=== PATIENT | female | born 1970 | race Caucasian/White ===

== ENCOUNTER 2018-01-21 15:10 | Inpatient (IN) | payer BC ==
[~2018-01-21] VITALS: Ht 165.1 cm; Wt 102.8 kg
[2018-01-21] MEDS ORDERED: PLEASE ENTER ALLERGIES MC SCH (15:30)
[2018-01-21] MEDS ORDERED: ONDANSETRON 2MG/ML, 2ML IVPush ONE (15:30)
[2018-01-21] MEDS ORDERED: SODIUM CHLORIDE FLUSH 10ML SYR IVF ONE (15:30)
[2018-01-21 15:39] LABS: BASOPHILS # (AUTO) 0.01 x10^3/uL (0-0.1); BASOPHILS % (AUTO) 0 % (0-1); EOSINOPHILS # (AUTO) 0.01 x10^3/uL (0-0.4); EOSINOPHILS % (AUTO) 0 % (1-7); LYMPHOCYTES # (AUTO) 1.25 x10^3/uL (1-3.4); LYMPHOCYTES % (AUTO) 7 % (22-44); MD NO; MEAN CORPUSCULAR HEMOGLOBIN 30.6 pg (27.0-34.8); MEAN CORPUSCULAR HGB CONC 34.5 g/dL (32.4-35.8); MEAN CORPUSCULAR VOLUME 88.6 fL (80-100); MEAN PLATELET VOLUME 8.4 fL (7.4-10.4); MONOCYTES # (AUTO) 0.73 x10^3/uL (0.2-0.8); MONOCYTES % (AUTO) 4 % (2-9); NEUTROPHILS # (AUTO) 15.64 x10^3/uL (1.8-6.8); NEUTROPHILS % (AUTO) 89 % (42-75); PLATELET COUNT 334 x10^3/uL (130-400); RED BLOOD COUNT 4.92 x10^6/uL (3.82-5.3); RED CELL DISTRIBUTION WIDTH 13.3 % (9.6-15.2)
[2018-01-21 15:48] LABS: ALANINE AMINOTRANSFERASE 25 U/L (12-78); ALBUMIN 4.2 g/dL (3.4-5.0); ANION GAP 9 mmol/L (5-15); CALCIUM 9.6 mg/dL (8.5-10.1); CHLORIDE 107 mmol/L (98-107); CREATININE 0.81 mg/dL (0.55-1.02)
[2018-01-21 15:51] LABS: ALKALINE PHOSPHATASE 71 U/L (45-117); BILIRUBIN,TOTAL 0.9 mg/dL (0.2-1.0); TOTAL PROTEIN 7.7 g/dL (6.4-8.2)
[2018-01-21] MEDS ORDERED: MORPHINE SULFATE 4 MG/ML, 1ML ONE ×2 (16:04→17:23)
[2018-01-21] MEDS ORDERED: ONDANSETRON 2MG/ML, 2ML ONE (16:04)
[2018-01-21] MEDS: MORPHINE SULFATE 4 MG/ML, 1ML IVPush PRN ×2 (16:07→17:27)
[2018-01-21] MEDS ORDERED: FLUO10CA13 PO (16:16)
[2018-01-21] MEDS ORDERED: HYDR-3240 PO (16:18)
[2018-01-21] MEDS ORDERED: ALPR0.25 PO (16:18)
[2018-01-21] MEDS ORDERED: OMNIPAQUE 350 MG/ML, 100ML BOTTLE ONE (16:51)
[2018-01-21] MEDS ORDERED: CIPROFLOXACIN/PMX 400MG/200ML 200 ML IV ONE (17:30)
[2018-01-21] MEDS ORDERED: METRONIDAZOLE PMX 500MG/100ML 100 ML IVPB ONE (17:30)
[2018-01-21] MEDS ORDERED: DOCUSATE 100 MG CAPSULE PO PRN (18:00)
[2018-01-21] MEDS ORDERED: BISACODYL 10 MG SUPP PR PRN (18:00)
[2018-01-21] MEDS ORDERED: ACETAMINOPHEN 325 MG TABLET PO PRN (18:00)
[2018-01-21] MEDS ORDERED: ONDANSETRON 2MG/ML, 2ML IVPush PRN (18:00)
[2018-01-21] MEDS ORDERED: ENALAPRILAT 1.25 MG/ML, 2ML IVPush PRN (18:00)
[2018-01-21] MEDS ORDERED: ONDANSETRON ODT 4 MG PO PRN (18:00)
[2018-01-21] MEDS ORDERED: HYDROcodone/APAP 5/325 TABLET PO PRN (18:00)
[2018-01-21] MEDS ORDERED: POLYETHYLENE GLYCOL 17 GM PACKET PO PRN (18:00)
[2018-01-21] MEDS ORDERED: LABETALOL 5MG/ML, 20ML IVPush PRN (18:00)
[2018-01-21 18:09] LABS: MICROSCOPIC AUTO
[2018-01-21 18:15] LABS: CULTURE INDICATED? NO
[2018-01-21 18:35] VITALS: BP 161/102
[2018-01-21] MEDS: morphine SULFATE 10 MG/ML, 1ML IVPush PRN (18:39)
[2018-01-21 20:37] VITALS: BP 105/70
[2018-01-21] MEDS: LACTATED RINGERS 1,000 ML IV SCH (21:25)
[2018-01-21] MEDS: PIPERACILLIN/TAZO/PMX 3.375GM 50 ML IV SCH (22:04)
[2018-01-22] MEDS: morphine SULFATE 10 MG/ML, 1ML IVPush PRN ×3 (00:18→09:03)
[2018-01-22 03:40] VITALS: BP 109/75
[2018-01-22] MEDS: LACTATED RINGERS 1,000 ML IV SCH ×3 (04:00→17:20)
[2018-01-22] MEDS: PIPERACILLIN/TAZO/PMX 3.375GM 50 ML IV SCH ×4 (04:53→22:20)
[2018-01-22 05:28] LABS: MEAN CORPUSCULAR HEMOGLOBIN 30.3 pg (27.0-34.8); MEAN CORPUSCULAR HGB CONC 34.1 g/dL (32.4-35.8); MEAN PLATELET VOLUME 8.8 fL (7.4-10.4); PLATELET COUNT 297 x10^3/uL (130-400); RED BLOOD COUNT 4.61 x10^6/uL (3.82-5.3); RED CELL DISTRIBUTION WIDTH 13.9 % (9.6-15.2)
[2018-01-22 05:41] LABS: ALBUMIN 3.7 g/dL (3.4-5.0); ANION GAP 8 mmol/L (5-15); CALCIUM 8.9 mg/dL (8.5-10.1); CHLORIDE 103 mmol/L (98-107)
[2018-01-22 05:46] LABS: ALANINE AMINOTRANSFERASE 22 U/L (12-78); ALKALINE PHOSPHATASE 68 U/L (45-117); BILIRUBIN,TOTAL 1.4 mg/dL (0.2-1.0); CREATININE 0.91 mg/dL (0.55-1.02); TOTAL PROTEIN 7.4 g/dL (6.4-8.2)
[2018-01-22 06:01] LABS: BASOPHILS # (AUTO) 0.02 x10^3/uL (0-0.1); BASOPHILS % (AUTO) 0 % (0-1); EOSINOPHILS % (AUTO) 0 % (1-7); LYMPHOCYTES # (AUTO) 1.34 x10^3/uL (1-3.4); LYMPHOCYTES % (AUTO) 7 % (22-44); MD SCAN; MONOCYTES # (AUTO) 1.07 x10^3/uL (0.2-0.8); MONOCYTES % (AUTO) 5 % (2-9); NEUTROPHILS # (AUTO) 17.83 x10^3/uL (1.8-6.8); NEUTROPHILS % (AUTO) 88 % (42-75)
[2018-01-22 08:07] VITALS: BP 107/73
[2018-01-22] MEDS: FLUOXETINE HCL 20 MG CAPSULE PO SCH (09:03)
[2018-01-22] MEDS ORDERED: PROCHLORPERAZINE 5 MG/ML, 2ML IVPush ONE (10:00)
[2018-01-22] MEDS ORDERED: DIPHENHYDRAMINE 50 MG/ML, 1ML IVPush ONE (10:00)
[2018-01-22 12:35] VITALS: BP 117/82
[2018-01-22] MEDS: HYDROmorphone 2 MG/ML, 1ML IVPush PRN ×3 (12:59→22:20)
[2018-01-22 20:43] VITALS: BP 132/72
[2018-01-23 02:10] VITALS: BP 137/88
[2018-01-23] MEDS: LACTATED RINGERS 1,000 ML IV SCH ×3 (02:35→20:29)
[2018-01-23] MEDS: HYDROmorphone 2 MG/ML, 1ML IVPush PRN ×5 (02:35→20:29)
[2018-01-23] MEDS: PIPERACILLIN/TAZO/PMX 3.375GM 50 ML IV SCH ×4 (04:04→22:01)
[2018-01-23 05:35] LABS: MEAN CORPUSCULAR HEMOGLOBIN 30.1 pg (27.0-34.8); MEAN CORPUSCULAR HGB CONC 33.8 g/dL (32.4-35.8); MEAN PLATELET VOLUME 8.6 fL (7.4-10.4); PLATELET COUNT 268 x10^3/uL (130-400); RED BLOOD COUNT 4.34 x10^6/uL (3.82-5.3); RED CELL DISTRIBUTION WIDTH 14.2 % (9.6-15.2)
[2018-01-23 05:48] LABS: CHLORIDE 103 mmol/L (98-107)
[2018-01-23 05:54] LABS: ALANINE AMINOTRANSFERASE 16 U/L (12-78); ALBUMIN 2.9 g/dL (3.4-5.0); ALKALINE PHOSPHATASE 68 U/L (45-117); ANION GAP 10 mmol/L (5-15); BILIRUBIN,TOTAL 1.6 mg/dL (0.2-1.0); CALCIUM 8.9 mg/dL (8.5-10.1); CREATININE 0.81 mg/dL (0.55-1.02); TOTAL PROTEIN 6.9 g/dL (6.4-8.2)
[2018-01-23 05:59] LABS: MD YES
[2018-01-23 06:04] LABS: BAND#(MANUAL) 3.06 x10^3/uL; BANDS%(MANUAL) 16 % (0-7); LYMPH#(MANUAL) 0.96 x10^3/uL (1-3.4); LYMPHS% (MANUAL) 5 % (22-44); METAMYELOCYTES# (MANUAL) 0.38 x10^3/uL (0-0); METAMYELOCYTES% (MANUAL) 2 % (0-1); MONOS#(MANUAL) 0.76 x10^3/uL (0.3-2.7); MONOS% (MANUAL) 4 % (2-9); SEG#(MANUAL) 13.94 x10^3/uL (1.8-6.8); SEGS% (MANUAL) 73 % (42-75)
[2018-01-23 06:06] LABS: <PLATELET ESTIMATE> ADEQUATE; <PLT MORPHOLOGY> NORMAL PLT MORPH; <RBC MORPHOLOGY> NORMAL
[2018-01-23] MEDS: FLUOXETINE HCL 20 MG CAPSULE PO SCH (07:50)
[2018-01-23 08:59] VITALS: BP 143/96
[2018-01-23] MEDS: PROCHLORPERAZINE 5 MG/ML, 2ML IVPush PRN (10:50)
[2018-01-23] MEDS: DIPHENHYDRAMINE 50 MG/ML, 1ML IVPush PRN ×2 (10:50→20:01)
[2018-01-23 12:41] LABS: HEMOGLOBIN A1C 5.4 % (4.2-6.3)
[2018-01-23 13:19] LABS: MICROSCOPIC INDICATED
[2018-01-23 13:36] LABS: CULTURE INDICATED? NO
[2018-01-23 16:44] VITALS: BP 132/90
[2018-01-23 20:14] VITALS: BP 138/92
[2018-01-24] MEDS: HYDROmorphone 2 MG/ML, 1ML IVPush PRN ×5 (00:29→16:45)
[2018-01-24] MEDS: DIPHENHYDRAMINE 50 MG/ML, 1ML IVPush PRN ×2 (02:03→08:33)
[2018-01-24 02:05] VITALS: BP 156/95
[2018-01-24] MEDS: LACTATED RINGERS 1,000 ML IV SCH ×3 (02:05→15:30)
[2018-01-24] MEDS: PIPERACILLIN/TAZO/PMX 3.375GM 50 ML IV SCH ×4 (04:18→22:24)
[2018-01-24 05:44] LABS: MEAN CORPUSCULAR HEMOGLOBIN 30.4 pg (27.0-34.8); MEAN CORPUSCULAR HGB CONC 33.2 g/dL (32.4-35.8); MEAN CORPUSCULAR VOLUME 91.4 fL (80-100); PLATELET COUNT 284 x10^3/uL (130-400); RED BLOOD COUNT 4.06 x10^6/uL (3.82-5.3); RED CELL DISTRIBUTION WIDTH 14.4 % (9.6-15.2)
[2018-01-24 05:56] LABS: CHLORIDE 103 mmol/L (98-107)
[2018-01-24 06:04] LABS: MD YES
[2018-01-24 06:05] LABS: ALANINE AMINOTRANSFERASE 13 U/L (12-78); ALBUMIN 2.3 g/dL (3.4-5.0); ALKALINE PHOSPHATASE 66 U/L (45-117); ANION GAP 7 mmol/L (5-15); BILIRUBIN,TOTAL 1.4 mg/dL (0.2-1.0); CALCIUM 8.9 mg/dL (8.5-10.1); TOTAL PROTEIN 6.4 g/dL (6.4-8.2)
[2018-01-24 06:06] LABS: <PLATELET ESTIMATE> ADEQUATE; <PLT MORPHOLOGY> NORMAL PLT MORPH; <RBC MORPHOLOGY> NORMAL; BAND#(MANUAL) 1.79 x10^3/uL; BANDS%(MANUAL) 12 % (0-7); LYMPH#(MANUAL) 1.49 x10^3/uL (1-3.4); LYMPHS% (MANUAL) 10 % (22-44); METAMYELOCYTES# (MANUAL) 0.15 x10^3/uL (0-0); METAMYELOCYTES% (MANUAL) 1 % (0-1); MONOS% (MANUAL) 2 % (2-9); SEG#(MANUAL) 11.18 x10^3/uL (1.8-6.8); SEGS% (MANUAL) 75 % (42-75); TOXIC GRAN 1+
[2018-01-24 07:15] VITALS: BP 140/99
[2018-01-24] MEDS: PROCHLORPERAZINE 5 MG/ML, 2ML IVPush PRN (08:33)
[2018-01-24] MEDS: FLUOXETINE HCL 20 MG CAPSULE PO SCH (09:00)
[2018-01-24] MEDS ORDERED: LABETALOL 5MG/ML, 20ML IV PRN (14:30)
[2018-01-24] MEDS ORDERED: MEPERIDINE/PF 25MG/0.5ML IVPush PRN (14:30)
[2018-01-24] MEDS ORDERED: hydrALAzine 20 MG/ML, 1ML IV PRN (14:30)
[2018-01-24] MEDS ORDERED: OXYcodone 5 MG/5 ML ORAL.SOL UDC PO PRN (14:30)
[2018-01-24] MEDS ORDERED: PROMETHAZINE 25 MG/ML, 1ML IV PRN (14:30)
[2018-01-24] MEDS ORDERED: ACETAMINOPHEN 325 MG TABLET PO PRN ×2 (14:30→23:30)
[2018-01-24] MEDS ORDERED: ONDANSETRON 2MG/ML, 2ML IV PRN ×2 (14:30→23:30)
[2018-01-24 15:43] VITALS: BP 154/113
[2018-01-24 16:32] LABS: HCG UR SG 1.034 (1.003-1.030)
[2018-01-24] MEDS ORDERED: FENTANYL PF 250 MCG/5ML ONE (16:40)
[2018-01-24] MEDS ORDERED: EPINEPHRINE 1 MG/ML, 1ML ONE (17:02)
[2018-01-24] MEDS ORDERED: BUPIVACAINE/PF 0.5% ONE (17:02)
[2018-01-24] MEDS ORDERED: PIPERACILLIN/TAZO/PMX 3.375GM 50 ML ONE (17:39)
[2018-01-24] MEDS ORDERED: SUCCINYLCHOLINE 20 MG/ML, 10ML ONE (17:58)
[2018-01-24] MEDS ORDERED: PROPOFOL 10 MG/ML, 20ML ONE (17:58)
[2018-01-24] MEDS ORDERED: ROCURONIUM 10MG/ML,5ML ONE (17:58)
[2018-01-24] MEDS ORDERED: KETAMINE 10 MG/ML, 20ML ONE (18:15)
[2018-01-24] MEDS ORDERED: ONDANSETRON 2MG/ML, 2ML ONE ×2 (18:50→19:35)
[2018-01-24] MEDS ORDERED: METOCLOPRAMIDE 5 MG/ML, 2ML ONE (18:50)
[2018-01-24] MEDS ORDERED: NEOSTIGMINE 1 MG/ML, 10ML ONE (19:18)
[2018-01-24] MEDS ORDERED: GLYCOPYRROLATE 0.4 MG/2 ML, 2ML ONE (19:18)
[2018-01-24] MEDS ORDERED: PROMETHAZINE 25 MG/ML, 1ML ONE (19:35)
[2018-01-24] MEDS ORDERED: HYDROmorphone 2 MG/ML, 1ML ONE (19:36)
[2018-01-24] MEDS ORDERED: FENTANYL PF 100 MCG/2ML ONE ×2 (19:36→20:18)
[2018-01-24] MEDS: HYDROmorphone 1 MG/ML, 1ML IV PRN ×4 (19:39→20:15)
[2018-01-24] MEDS: FENTANYL PF 100 MCG/2ML IV PRN ×3 (19:44→20:29)
[2018-01-24] MEDS ORDERED: ACETAMINOPHEN 650 MG/20.3 ML UDC ONE (19:58)
[2018-01-24] MEDS ORDERED: OXYcodone 5 MG/5 ML ORAL.SOL UDC ONE (19:59)
[2018-01-24] MEDS ORDERED: HYDROmorphone PCA 30 MG/30 ML IV PRN (20:00)
[2018-01-24] MEDS ORDERED: MEPERIDINE/PF 25MG/0.5ML ONE (20:18)
[2018-01-24] MEDS ORDERED: LORazepam 2 MG/ML, 1ML IV PRN (23:30)
[2018-01-24] MEDS ORDERED: ACETAMINOPHEN 650 MG SUPP PR PRN (23:30)
[2018-01-24] MEDS ORDERED: DIPHENHYDRAMINE 25 MG CAPSULE PO PRN (23:30)
[2018-01-24] MEDS ORDERED: HYDROmorphone 2 MG/ML, 1ML IVPush PRN (23:30)
[2018-01-24] MEDS ORDERED: DO NOT STOP ANTIBIOTICS AFTER 24HRS MC SCH (23:30)
[2018-01-24 23:55] VITALS: BP 108/84
[2018-01-25] MEDS: LACTATED RINGERS 1,000 ML IV SCH ×2 (01:21→07:59)
[2018-01-25 02:58] VITALS: BP 136/90
[2018-01-25] MEDS: PIPERACILLIN/TAZO/PMX 3.375GM 50 ML IV SCH ×4 (04:26→21:50)
[2018-01-25] MEDS: INSULIN REGULAR 100 UNITS/ML, 3ML VIAL SQ-INSULIN SCH ×2 (06:04→12:00)
[2018-01-25 06:20] LABS: MEAN CORPUSCULAR HEMOGLOBIN 30.5 pg (27.0-34.8); MEAN CORPUSCULAR HGB CONC 33.8 g/dL (32.4-35.8); MEAN CORPUSCULAR VOLUME 90.2 fL (80-100); PLATELET COUNT 338 x10^3/uL (130-400); RED BLOOD COUNT 3.82 x10^6/uL (3.82-5.3); RED CELL DISTRIBUTION WIDTH 13.9 % (9.6-15.2)
[2018-01-25 06:30] LABS: ALBUMIN 1.5 g/dL (3.4-5.0); ANION GAP 6 mmol/L (5-15); CALCIUM 7.9 mg/dL (8.5-10.1); CHLORIDE 105 mmol/L (98-107); CREATININE 0.72 mg/dL (0.55-1.02)
[2018-01-25 06:36] VITALS: BP 139/90
[2018-01-25 06:43] LABS: MD YES
[2018-01-25 06:46] LABS: <PLATELET ESTIMATE> ADEQUATE; <PLT MORPHOLOGY> NORMAL PLT MORPH; <RBC MORPHOLOGY> NORMAL; BAND#(MANUAL) 2.73 x10^3/uL; BANDS%(MANUAL) 26 % (0-7); LYMPH#(MANUAL) 2.52 x10^3/uL (1-3.4); LYMPHS% (MANUAL) 24 % (22-44); METAMYELOCYTES# (MANUAL) 0.42 x10^3/uL (0-0); METAMYELOCYTES% (MANUAL) 4 % (0-1); MONOS#(MANUAL) 0.42 x10^3/uL (0.3-2.7); MONOS% (MANUAL) 4 % (2-9); SEG#(MANUAL) 4.41 x10^3/uL (1.8-6.8); SEGS% (MANUAL) 42 % (42-75); TOXIC GRAN 1+
[2018-01-25] MEDS ORDERED: INSULIN REGULAR 100 UNITS/ML, 3ML VIAL SQ-INSULIN SCH (07:00)
[2018-01-25] MEDS: FLUOXETINE HCL 20 MG CAPSULE PO SCH (09:00)
[2018-01-25] MEDS: ENOXAPARIN 40 MG/0.4 ML SQ SCH (09:47)
[2018-01-25] MEDS ORDERED: HYDROmorphone PCA 30 MG/30 ML IV PRN (10:03)
[2018-01-25] MEDS ORDERED: LACTATED RINGERS 1,000 ML IV SCH ×2 (10:30→14:00)
[2018-01-25] MEDS ORDERED: LIDOCAINE-MPF 2%, 2ML ONE (10:45)
[2018-01-25 12:38] VITALS: BP 152/94
[2018-01-25] MEDS ORDERED: TPN PER PHARMACY IV SCH (14:00)
[2018-01-25] MEDS ORDERED: AMINO ACID 10% IV SCH ×4 (14:30→17:00)
[2018-01-25] MEDS ORDERED: FAT EMUL IV SCH ×4 (14:30→17:00)
[2018-01-25] MEDS ORDERED: SMOF TPN IV SCH ×4 (14:30→17:00)
[2018-01-25] MEDS ORDERED: DEXTROSE 70% IV SCH ×4 (14:30→17:00)
[2018-01-25] MEDS ORDERED: [UNRECOGNIZED DRUG - OTHER] IV SCH ×3 (14:30→17:00)
[2018-01-25] MEDS ORDERED: DEXTROSE 10% 500 ML IV PRN (17:00)
[2018-01-25] MEDS ORDERED: DEXTROSE 50%, 50ML SYRINGE IVPush PRN (17:00)
[2018-01-25] MEDS ORDERED: [UNRECOGNIZED DRUG - OTHER] IV SCH (17:00)
[2018-01-25] MEDS: FILTER, DISP 1.2 MICRON FOR TPN/PVN IV PRN (17:03)
[2018-01-25] MEDS: FAMOTIDINE 20 MG/2 ML IVPush SCH ×2 (18:31→20:12)
[2018-01-25 18:49] VITALS: BP 143/94
[2018-01-25] MEDS: KETOROLAC 30 MG/1 ML IV PRN (20:11)
[2018-01-25] MEDS: INSULIN REGULAR HIGH DOSE Q6H X 48HRS SQ-INSULIN SCH (23:11)
[2018-01-26 01:50] VITALS: BP 147/98
[2018-01-26] MEDS: KETOROLAC 30 MG/1 ML IV PRN ×3 (03:16→19:57)
[2018-01-26] MEDS: PIPERACILLIN/TAZO/PMX 3.375GM 50 ML IV SCH ×4 (03:39→21:48)
[2018-01-26] MEDS: INSULIN REGULAR HIGH DOSE Q6H X 48HRS SQ-INSULIN SCH ×4 (04:54→22:59)
[2018-01-26 05:37] LABS: MEAN CORPUSCULAR HEMOGLOBIN 30.6 pg (27.0-34.8); MEAN CORPUSCULAR HGB CONC 33.9 g/dL (32.4-35.8); MEAN CORPUSCULAR VOLUME 90.3 fL (80-100); MEAN PLATELET VOLUME 8.1 fL (7.4-10.4); PLATELET COUNT 317 x10^3/uL (130-400); RED CELL DISTRIBUTION WIDTH 14.2 % (9.6-15.2)
[2018-01-26 05:43] LABS: CHLORIDE 102 mmol/L (98-107)
[2018-01-26 06:00] LABS: BASOPHILS % (AUTO) 0 % (0-1); EOSINOPHILS # (AUTO) 0.02 x10^3/uL (0-0.4); EOSINOPHILS % (AUTO) 0 % (1-7); LYMPHOCYTES # (AUTO) 1.14 x10^3/uL (1-3.4); LYMPHOCYTES % (AUTO) 9 % (22-44); MD SCAN; MONOCYTES # (AUTO) 0.96 x10^3/uL (0.2-0.8); MONOCYTES % (AUTO) 8 % (2-9); NEUTROPHILS # (AUTO) 10.16 x10^3/uL (1.8-6.8); NEUTROPHILS % (AUTO) 83 % (42-75)
[2018-01-26 06:07] LABS: ALANINE AMINOTRANSFERASE 15 U/L (12-78); ALBUMIN 1.4 g/dL (3.4-5.0); ALKALINE PHOSPHATASE 38 U/L (45-117); ANION GAP 4 mmol/L (5-15); BILIRUBIN,TOTAL 1.6 mg/dL (0.2-1.0); CALCIUM 8.3 mg/dL (8.5-10.1); CREATININE 0.61 mg/dL (0.55-1.02); PREALBUMIN 3.2 mg/dL (20.0-40.0); TOTAL PROTEIN 5.1 g/dL (6.4-8.2); TRIGLYCERIDES 162 mg/dL (50-200)
[2018-01-26] MEDS: FAMOTIDINE 20 MG/2 ML IVPush SCH (06:35)
[2018-01-26] MEDS: FLUOXETINE HCL 20 MG CAPSULE PO SCH (07:31)
[2018-01-26] MEDS: ENOXAPARIN 40 MG/0.4 ML SQ SCH (07:40)
[2018-01-26 07:50] VITALS: BP 124/84
[2018-01-26 13:03] VITALS: BP 132/86
[2018-01-26] MEDS ORDERED: SMOF TPN IV SCH ×2 (17:00)
[2018-01-26] MEDS ORDERED: [UNRECOGNIZED DRUG - OTHER] IV SCH (17:00)
[2018-01-26] MEDS ORDERED: FAT EMUL IV SCH ×2 (17:00)
[2018-01-26] MEDS ORDERED: AMINO ACID 10% IV SCH ×2 (17:00)
[2018-01-26] MEDS ORDERED: DEXTROSE 70% IV SCH ×2 (17:00)
[2018-01-26] MEDS ORDERED: [UNRECOGNIZED DRUG - OTHER] IV SCH (17:00)
[2018-01-26] MEDS: FILTER, DISP 1.2 MICRON FOR TPN/PVN IV PRN (17:00)
[2018-01-26 18:42] VITALS: BP 139/89
[2018-01-27 01:10] VITALS: BP 138/92
[2018-01-27] MEDS: KETOROLAC 30 MG/1 ML IV PRN ×2 (03:26→12:39)
[2018-01-27] MEDS: PIPERACILLIN/TAZO/PMX 3.375GM 50 ML IV SCH ×4 (03:54→21:38)
[2018-01-27 04:13] LABS: MEAN CORPUSCULAR HEMOGLOBIN 30.9 pg (27.0-34.8); MEAN CORPUSCULAR HGB CONC 34.1 g/dL (32.4-35.8); MEAN CORPUSCULAR VOLUME 90.4 fL (80-100); MEAN PLATELET VOLUME 7.6 fL (7.4-10.4); PLATELET COUNT 348 x10^3/uL (130-400); RED BLOOD COUNT 2.89 x10^6/uL (3.82-5.3); RED CELL DISTRIBUTION WIDTH 14.7 % (9.6-15.2)
[2018-01-27 04:19] LABS: ALANINE AMINOTRANSFERASE 16 U/L (12-78); ALBUMIN 1.5 g/dL (3.4-5.0); ANION GAP 4 mmol/L (5-15); CALCIUM 7.9 mg/dL (8.5-10.1); CHLORIDE 104 mmol/L (98-107); CREATININE 0.53 mg/dL (0.55-1.02)
[2018-01-27 04:21] LABS: ALKALINE PHOSPHATASE 52 U/L (45-117); BILIRUBIN,TOTAL 0.6 mg/dL (0.2-1.0); TOTAL PROTEIN 5.4 g/dL (6.4-8.2)
[2018-01-27 04:35] LABS: MD YES
[2018-01-27 04:41] LABS: BAND#(MANUAL) 0.76 x10^3/uL; BANDS%(MANUAL) 5 % (0-7); BASOS#(MANUAL) 0.15 x10^3/uL (0-0.1); BASOS% (MANUAL) 1 % (0-1); EOS% (MANUAL) 2 % (1-7); LYMPH#(MANUAL) 2.27 x10^3/uL (1-3.4); LYMPHS% (MANUAL) 15 % (22-44); METAMYELOCYTES% (MANUAL) 4 % (0-1); MYELOCYTES% (MANUAL) 4 % (0-0); REACTIVE LYMPHS # (MANUAL) 0.15 x10^3/uL (0-0); REACTIVE LYMPHS % (MANUAL) 1 % (0-0); SEG#(MANUAL) 10.27 x10^3/uL (1.8-6.8); SEGS% (MANUAL) 68 % (42-75)
[2018-01-27 04:43] LABS: <PLATELET ESTIMATE> ADEQUATE; POLYCHROMASIA 1+; TOXIC GRAN 1+
[2018-01-27 04:44] LABS: <PLT MORPHOLOGY> NORMAL PLT MORPH
[2018-01-27] MEDS: INSULIN REGULAR HIGH DOSE Q6H X 48HRS SQ-INSULIN SCH ×2 (05:00→11:12)
[2018-01-27 07:41] VITALS: BP 128/90
[2018-01-27] MEDS: ENOXAPARIN 40 MG/0.4 ML SQ SCH (08:12)
[2018-01-27] MEDS: FLUOXETINE HCL 20 MG CAPSULE PO SCH ×2 (09:43→10:23)
[2018-01-27] MEDS ORDERED: FLUCONAZOLE 400 MG/200 ML 200 ML IV SCH (11:00)
[2018-01-27 13:33] VITALS: BP 135/84
[2018-01-27] MEDS ORDERED: SMOF TPN IV SCH ×2 (17:00)
[2018-01-27] MEDS ORDERED: [UNRECOGNIZED DRUG - OTHER] IV SCH (17:00)
[2018-01-27] MEDS ORDERED: [UNRECOGNIZED DRUG - OTHER] IV SCH (17:00)
[2018-01-27] MEDS ORDERED: DEXTROSE 70% IV SCH ×2 (17:00)
[2018-01-27] MEDS ORDERED: AMINO ACID 10% IV SCH ×2 (17:00)
[2018-01-27] MEDS ORDERED: FAT EMUL IV SCH ×2 (17:00)
[2018-01-27] MEDS: FILTER, DISP 1.2 MICRON FOR TPN/PVN IV PRN (17:51)
[2018-01-27 18:52] VITALS: BP 137/90
[2018-01-27] MEDS ORDERED: OMEPRAZOLE 20 MG CAPSULE.DR PO SCH (21:00)
[2018-01-28 01:05] VITALS: BP 147/97
[2018-01-28] MEDS: PIPERACILLIN/TAZO/PMX 3.375GM 50 ML IV SCH ×4 (03:49→22:04)
[2018-01-28 04:05] LABS: MEAN CORPUSCULAR HEMOGLOBIN 29.9 pg (27.0-34.8); MEAN CORPUSCULAR HGB CONC 33.1 g/dL (32.4-35.8); MEAN CORPUSCULAR VOLUME 90.1 fL (80-100); MEAN PLATELET VOLUME 7.1 fL (7.4-10.4); PLATELET COUNT 410 x10^3/uL (130-400); RED CELL DISTRIBUTION WIDTH 14.6 % (9.6-15.2)
[2018-01-28 04:17] LABS: ALBUMIN 1.5 g/dL (3.4-5.0); ANION GAP 3 mmol/L (5-15); CALCIUM 7.7 mg/dL (8.5-10.1); CHLORIDE 106 mmol/L (98-107); MD YES
[2018-01-28 04:20] LABS: ALANINE AMINOTRANSFERASE 19 U/L (12-78); ALKALINE PHOSPHATASE 82 U/L (45-117); BILIRUBIN,TOTAL 0.5 mg/dL (0.2-1.0); CREATININE 0.47 mg/dL (0.55-1.02); TOTAL PROTEIN 5.6 g/dL (6.4-8.2)
[2018-01-28 04:33] LABS: <PLATELET ESTIMATE> ADEQUATE; <PLT MORPHOLOGY> NORMAL PLT MORPH; BAND#(MANUAL) 1.86 x10^3/uL; BANDS%(MANUAL) 9 % (0-7); LYMPH#(MANUAL) 3.31 x10^3/uL (1-3.4); LYMPHS% (MANUAL) 16 % (22-44); METAMYELOCYTES# (MANUAL) 0.83 x10^3/uL (0-0); METAMYELOCYTES% (MANUAL) 4 % (0-1); MONOS#(MANUAL) 1.04 x10^3/uL (0.3-2.7); MONOS% (MANUAL) 5 % (2-9); MYELOCYTES# (MANUAL) 0.41 x10^3/uL (0-0); MYELOCYTES% (MANUAL) 2 % (0-0); NRBC % (MANUAL) 3 % (0-1); POLYCHROMASIA 1+; REACTIVE LYMPHS # (MANUAL) 0.21 x10^3/uL (0-0); REACTIVE LYMPHS % (MANUAL) 1 % (0-0); SEG#(MANUAL) 13.04 x10^3/uL (1.8-6.8); SEGS% (MANUAL) 63 % (42-75); TOXIC GRAN 1+
[2018-01-28] MEDS ORDERED: INSULIN REGULAR HIGH DOSE QDAY SQ-INSULIN SCH (05:00)
[2018-01-28 07:11] VITALS: BP 134/88
[2018-01-28] MEDS: FLUOXETINE HCL 20 MG CAPSULE PO SCH (08:04)
[2018-01-28] MEDS: ENOXAPARIN 40 MG/0.4 ML SQ SCH (08:05)
[2018-01-28 09:35] LABS: MICROSCOPIC NOT IND
[2018-01-28] MEDS: FLUCONAZOLE 200 MG/100 ML 100 ML IV SCH (11:18)
[2018-01-28] MEDS ORDERED: VANCOMYCIN PER PHARMACY MC PRN (11:30)
[2018-01-28] MEDS ORDERED: PHARMACOKINETIC MONITORING MC PRN (12:00)
[2018-01-28] MEDS ORDERED: PHARMACOKINETIC CONSULTATION MC ONE (12:00)
[2018-01-28] MEDS ORDERED: OMNIPAQUE 350 MG/ML, 100ML BOTTLE ONE (12:02)
[2018-01-28] MEDS: KETOROLAC 30 MG/1 ML IVPush PRN ×2 (12:09→20:15)
[2018-01-28] MEDS: VANCOMYCIN 1,500 MG in SODIUM CHLORIDE 0.9% 250 ML IV SCH (12:49)
[2018-01-28 14:56] VITALS: BP 139/89
[2018-01-28] MEDS ORDERED: SMOF TPN IV SCH ×2 (17:00)
[2018-01-28] MEDS ORDERED: [UNRECOGNIZED DRUG - OTHER] IV SCH ×2 (17:00)
[2018-01-28] MEDS ORDERED: FAT EMUL IV SCH ×2 (17:00)
[2018-01-28] MEDS ORDERED: AMINO ACID 10% IV SCH ×2 (17:00)
[2018-01-28] MEDS ORDERED: DEXTROSE 70% IV SCH ×2 (17:00)
[2018-01-28] MEDS: FILTER, DISP 1.2 MICRON FOR TPN/PVN IV PRN (18:09)
[2018-01-28 18:51] VITALS: BP 139/90
[2018-01-28] MEDS: DIPHENHYDRAMINE 50 MG/ML, 1ML IV PRN (22:04)
[2018-01-29] MEDS: VANCOMYCIN 1,500 MG in SODIUM CHLORIDE 0.9% 250 ML IV SCH ×2 (00:22→13:16)
[2018-01-29 02:26] VITALS: BP 138/86
[2018-01-29] MEDS: PIPERACILLIN/TAZO/PMX 3.375GM 50 ML IV SCH ×3 (04:10→18:09)
[2018-01-29] MEDS: PROCHLORPERAZINE 5 MG/ML, 2ML IVPush PRN (04:10)
[2018-01-29] MEDS: KETOROLAC 30 MG/1 ML IVPush PRN ×3 (04:10→18:25)
[2018-01-29 04:54] LABS: MEAN CORPUSCULAR HEMOGLOBIN 29.8 pg (27.0-34.8); MEAN CORPUSCULAR HGB CONC 33.6 g/dL (32.4-35.8); MEAN CORPUSCULAR VOLUME 88.7 fL (80-100); MEAN PLATELET VOLUME 7.2 fL (7.4-10.4); PLATELET COUNT 460 x10^3/uL (130-400); RED BLOOD COUNT 2.74 x10^6/uL (3.82-5.3); RED CELL DISTRIBUTION WIDTH 15.1 % (9.6-15.2)
[2018-01-29 04:57] LABS: ALANINE AMINOTRANSFERASE 21 U/L (12-78); ALBUMIN 1.5 g/dL (3.4-5.0); ANION GAP 5 mmol/L (5-15); CALCIUM 7.5 mg/dL (8.5-10.1); CHLORIDE 110 mmol/L (98-107); CREATININE 0.43 mg/dL (0.55-1.02)
[2018-01-29 05:02] LABS: ALKALINE PHOSPHATASE 86 U/L (45-117); BILIRUBIN,TOTAL 0.4 mg/dL (0.2-1.0); PREALBUMIN 7.5 mg/dL (20.0-40.0); TOTAL PROTEIN 5.5 g/dL (6.4-8.2)
[2018-01-29 05:44] LABS: MD YES
[2018-01-29 05:46] LABS: BAND#(MANUAL) 0.22 x10^3/uL; BANDS%(MANUAL) 1 % (0-7); EOS#(MANUAL) 0.44 x10^3/uL (0.0-0.4); EOS% (MANUAL) 2 % (1-7); LYMPH#(MANUAL) 1.96 x10^3/uL (1-3.4); LYMPHS% (MANUAL) 9 % (22-44); METAMYELOCYTES# (MANUAL) 0.87 x10^3/uL (0-0); METAMYELOCYTES% (MANUAL) 4 % (0-1); MONOS#(MANUAL) 0.44 x10^3/uL (0.3-2.7); MONOS% (MANUAL) 2 % (2-9); MYELOCYTES# (MANUAL) 0.44 x10^3/uL (0-0); MYELOCYTES% (MANUAL) 2 % (0-0); NRBC % (MANUAL) 1 % (0-1); SEG#(MANUAL) 17.44 x10^3/uL (1.8-6.8); SEGS% (MANUAL) 80 % (42-75)
[2018-01-29 05:47] LABS: <PLATELET ESTIMATE> INCREASED; <PLT MORPHOLOGY> NORMAL PLT MORPH; POLYCHROMASIA 1+; TOXIC GRAN 1+
[2018-01-29 07:51] VITALS: BP 142/95
[2018-01-29] MEDS: ENOXAPARIN 40 MG/0.4 ML SQ SCH (10:56)
[2018-01-29] MEDS: FLUOXETINE HCL 20 MG CAPSULE PO SCH (10:56)
[2018-01-29] MEDS: FLUCONAZOLE 200 MG/100 ML 100 ML IV SCH (11:38)
[2018-01-29 12:34] VITALS: BP 133/88
[2018-01-29 12:38] LABS: CLOSTRIDIUM DIFFICILE ANTIGEN NEGATIVE; CLOSTRIDIUM DIFFICILE TOXIN NEGATIVE (Negative)
[2018-01-29] MEDS ORDERED: FAT EMUL IV SCH (17:00)
[2018-01-29] MEDS ORDERED: DEXTROSE 70% IV SCH (17:00)
[2018-01-29] MEDS ORDERED: SMOF TPN IV SCH (17:00)
[2018-01-29] MEDS ORDERED: FILTER 1.2 MICRON IV PRN (17:00)
[2018-01-29] MEDS ORDERED: [UNRECOGNIZED DRUG - OTHER] IV SCH (17:00)
[2018-01-29] MEDS ORDERED: AMINO ACID 10% IV SCH (17:00)
[2018-01-29 19:06] VITALS: BP 135/88
[2018-01-29] MEDS: MEROPENEM 1 GM in SODIUM CHLORIDE 0.9% 100 ML IV SCH (20:53)
[2018-01-29] MEDS: DIPHENHYDRAMINE 50 MG/ML, 1ML IV PRN (21:14)
[2018-01-29] MEDS: DAPTOMYCIN 420 MG in SODIUM CHLORIDE 0.9% 100 ML IV SCH (21:51)
[2018-01-30] MEDS: KETOROLAC 30 MG/1 ML IVPush PRN ×2 (00:15→07:48)
[2018-01-30 01:10] VITALS: BP 126/94
[2018-01-30 04:19] LABS: ALANINE AMINOTRANSFERASE 23 U/L (12-78); ALBUMIN 1.5 g/dL (3.4-5.0); ANION GAP 4 mmol/L (5-15); CALCIUM 7.9 mg/dL (8.5-10.1); CHLORIDE 108 mmol/L (98-107); CREATININE 0.55 mg/dL (0.55-1.02)
[2018-01-30 04:22] LABS: ALKALINE PHOSPHATASE 88 U/L (45-117); BILIRUBIN,TOTAL 0.4 mg/dL (0.2-1.0); CREATINE KINASE, TOTAL 54 U/L (26-192); TOTAL PROTEIN 5.8 g/dL (6.4-8.2)
[2018-01-30 04:26] LABS: BASOPHILS % (AUTO) 0 % (0-1); EOSINOPHILS # (AUTO) 0.19 x10^3/uL (0-0.4); EOSINOPHILS % (AUTO) 1 % (1-7); LYMPHOCYTES # (AUTO) 1.42 x10^3/uL (1-3.4); LYMPHOCYTES % (AUTO) 9 % (22-44); MD NO; MEAN CORPUSCULAR HEMOGLOBIN 29.9 pg (27.0-34.8); MEAN CORPUSCULAR HGB CONC 33.4 g/dL (32.4-35.8); MEAN CORPUSCULAR VOLUME 89.3 fL (80-100); MEAN PLATELET VOLUME 7.4 fL (7.4-10.4); MONOCYTES # (AUTO) 0.84 x10^3/uL (0.2-0.8); MONOCYTES % (AUTO) 6 % (2-9); NEUTROPHILS # (AUTO) 12.75 x10^3/uL (1.8-6.8); NEUTROPHILS % (AUTO) 84 % (42-75); PLATELET COUNT 401 x10^3/uL (130-400); RED BLOOD COUNT 4.12 x10^6/uL (3.82-5.3)
[2018-01-30] MEDS: MEROPENEM 1 GM in SODIUM CHLORIDE 0.9% 100 ML IV SCH ×3 (04:48→20:27)
[2018-01-30 07:03] VITALS: BP 143/92
[2018-01-30] MEDS ORDERED: HYDROmorphone 2 MG/ML, 1ML IV PRN (07:30)
[2018-01-30] MEDS: FLUOXETINE HCL 20 MG CAPSULE PO SCH (07:48)
[2018-01-30] MEDS: ENOXAPARIN 40 MG/0.4 ML SQ SCH (07:49)
[2018-01-30] MEDS: FLUCONAZOLE 40 MG/ML ORAL SUSP PO SCH ×2 (07:49→07:57)
[2018-01-30] MEDS: DIPHENHYDRAMINE 50 MG/ML, 1ML IV PRN (07:54)
[2018-01-30] MEDS: FLUCONAZOLE 400 MG/200 ML 200 ML IV SCH (11:51)
[2018-01-30 12:58] VITALS: BP 139/89
[2018-01-30] MEDS ORDERED: AMINO ACID 10% IV SCH (17:00)
[2018-01-30] MEDS ORDERED: FAT EMUL IV SCH (17:00)
[2018-01-30] MEDS ORDERED: DEXTROSE 70% IV SCH (17:00)
[2018-01-30] MEDS ORDERED: SMOF TPN IV SCH (17:00)
[2018-01-30] MEDS ORDERED: [UNRECOGNIZED DRUG - OTHER] IV SCH (17:00)
[2018-01-30] MEDS: OXYcodone/APAP 7.5/325MG TABLET PO PRN ×2 (17:21→22:00)
[2018-01-30 18:44] VITALS: BP 139/87
[2018-01-30] MEDS: DAPTOMYCIN 420 MG in SODIUM CHLORIDE 0.9% 100 ML IV SCH (21:16)
[2018-01-30] MEDS: LORazepam 1MG TABLET PO PRN (22:00)
[2018-01-31 00:57] VITALS: BP 140/88
[2018-01-31] MEDS: OXYcodone/APAP 7.5/325MG TABLET PO PRN ×2 (04:28→20:50)
[2018-01-31] MEDS: LORazepam 1MG TABLET PO PRN ×2 (04:28→22:06)
[2018-01-31] MEDS: MEROPENEM 1 GM in SODIUM CHLORIDE 0.9% 100 ML IV SCH ×3 (04:29→17:53)
[2018-01-31 05:08] LABS: MEAN CORPUSCULAR HEMOGLOBIN 29.9 pg (27.0-34.8); MEAN CORPUSCULAR HGB CONC 33.8 g/dL (32.4-35.8); MEAN CORPUSCULAR VOLUME 88.5 fL (80-100); MEAN PLATELET VOLUME 7.4 fL (7.4-10.4); PLATELET COUNT 575 x10^3/uL (130-400); RED BLOOD COUNT 2.79 x10^6/uL (3.82-5.3); RED CELL DISTRIBUTION WIDTH 15.1 % (9.6-15.2)
[2018-01-31 05:19] LABS: ANION GAP 6 mmol/L (5-15); CALCIUM 8.1 mg/dL (8.5-10.1); CHLORIDE 104 mmol/L (98-107)
[2018-01-31 05:21] LABS: CREATININE 0.53 mg/dL (0.55-1.02)
[2018-01-31 05:34] LABS: MD YES
[2018-01-31 05:38] LABS: <PLATELET ESTIMATE> INCREASED; <PLT MORPHOLOGY> NORMAL PLT MORPH; BAND#(MANUAL) 0.63 x10^3/uL; BANDS%(MANUAL) 3 % (0-7); LYMPH#(MANUAL) 2.93 x10^3/uL (1-3.4); LYMPHS% (MANUAL) 14 % (22-44); MONOS#(MANUAL) 0.21 x10^3/uL (0.3-2.7); MONOS% (MANUAL) 1 % (2-9); MYELOCYTES# (MANUAL) 0.21 x10^3/uL (0-0); MYELOCYTES% (MANUAL) 1 % (0-0); NRBC % (MANUAL) 1 % (0-1); POLYCHROMASIA 1+; SEG#(MANUAL) 16.93 x10^3/uL (1.8-6.8); SEGS% (MANUAL) 81 % (42-75); TOXIC GRAN 1+
[2018-01-31 07:32] VITALS: BP 116/82
[2018-01-31] MEDS: METOCLOPRAMIDE 10MG TABLET PO SCH ×3 (08:49→17:52)
[2018-01-31] MEDS: ENOXAPARIN 40 MG/0.4 ML SQ SCH (08:49)
[2018-01-31] MEDS: FLUOXETINE HCL 20 MG CAPSULE PO SCH (08:49)
[2018-01-31] MEDS: IBUPROFEN 600 MG TABLET PO PRN (12:01)
[2018-01-31] MEDS: FLUCONAZOLE 400 MG/200 ML 200 ML IV SCH (12:01)
[2018-01-31 14:38] VITALS: BP 117/82
[2018-01-31] MEDS: FAMOTIDINE 20 MG TABLET PO SCH (20:41)
[2018-01-31 21:28] VITALS: BP 133/92
[2018-01-31] MEDS: DAPTOMYCIN 420 MG in SODIUM CHLORIDE 0.9% 100 ML IV SCH (21:57)
[2018-02-01 00:58] VITALS: BP 123/87
[2018-02-01] MEDS: IBUPROFEN 600 MG TABLET PO PRN ×3 (01:08→17:49)
[2018-02-01] MEDS: MEROPENEM 1 GM in SODIUM CHLORIDE 0.9% 100 ML IV SCH ×3 (01:46→17:43)
[2018-02-01 04:58] LABS: ANION GAP 3 mmol/L (5-15); CALCIUM 8.2 mg/dL (8.5-10.1); CHLORIDE 107 mmol/L (98-107)
[2018-02-01 04:59] LABS: CREATININE 0.48 mg/dL (0.55-1.02)
[2018-02-01 05:15] LABS: MEAN CORPUSCULAR HEMOGLOBIN 30.4 pg (27.0-34.8); MEAN CORPUSCULAR VOLUME 89.4 fL (80-100); MEAN PLATELET VOLUME 7.5 fL (7.4-10.4); PLATELET COUNT 635 x10^3/uL (130-400); RED BLOOD COUNT 2.62 x10^6/uL (3.82-5.3); RED CELL DISTRIBUTION WIDTH 14.9 % (9.6-15.2)
[2018-02-01 05:52] LABS: BASOPHILS # (AUTO) 0.06 x10^3/uL (0-0.1); BASOPHILS % (AUTO) 0 % (0-1); EOSINOPHILS % (AUTO) 0 % (1-7); LYMPHOCYTES # (AUTO) 1.99 x10^3/uL (1-3.4); LYMPHOCYTES % (AUTO) 11 % (22-44); MD SCAN; MONOCYTES # (AUTO) 1.21 x10^3/uL (0.2-0.8); MONOCYTES % (AUTO) 7 % (2-9); NEUTROPHILS % (AUTO) 81 % (42-75)
[2018-02-01] MEDS: OXYcodone/APAP 7.5/325MG TABLET PO PRN ×2 (06:14→21:44)
[2018-02-01] MEDS: FAMOTIDINE 20 MG TABLET PO SCH ×2 (08:05→21:43)
[2018-02-01] MEDS: METOCLOPRAMIDE 10MG TABLET PO SCH ×3 (08:05→17:43)
[2018-02-01] MEDS: ENOXAPARIN 40 MG/0.4 ML SQ SCH (08:05)
[2018-02-01] MEDS: FERROUS SULFATE 325 MG TABLET PO SCH ×3 (08:05→17:43)
[2018-02-01] MEDS: FLUOXETINE HCL 20 MG CAPSULE PO SCH (08:05)
[2018-02-01 08:30] VITALS: BP 122/86
[2018-02-01] MEDS: FLUCONAZOLE 400 MG/200 ML 200 ML IV SCH (11:57)
[2018-02-01] MEDS ORDERED: TEMAZEPAM 15 MG CAPSULE PO PRN (13:30)
[2018-02-01 14:30] VITALS: BP 103/67
[2018-02-01 19:21] VITALS: BP 120/79
[2018-02-01] MEDS: DAPTOMYCIN 420 MG in SODIUM CHLORIDE 0.9% 100 ML IV SCH (21:37)
[2018-02-02 00:53] VITALS: BP 132/82
[2018-02-02] MEDS: IBUPROFEN 600 MG TABLET PO PRN ×2 (01:18→09:17)
[2018-02-02] MEDS: MEROPENEM 1 GM in SODIUM CHLORIDE 0.9% 100 ML IV SCH ×3 (01:57→17:50)
[2018-02-02] MEDS: OXYcodone/APAP 7.5/325MG TABLET PO PRN ×3 (01:58→22:04)
[2018-02-02 06:08] LABS: MEAN CORPUSCULAR HEMOGLOBIN 30.2 pg (27.0-34.8); MEAN CORPUSCULAR VOLUME 88.7 fL (80-100); MEAN PLATELET VOLUME 7.5 fL (7.4-10.4); PLATELET COUNT 733 x10^3/uL (130-400); RED BLOOD COUNT 2.53 x10^6/uL (3.82-5.3); RED CELL DISTRIBUTION WIDTH 14.6 % (9.6-15.2)
[2018-02-02 06:29] LABS: BASOPHILS # (AUTO) 0.05 x10^3/uL (0-0.1); BASOPHILS % (AUTO) 0 % (0-1); EOSINOPHILS # (AUTO) 0.25 x10^3/uL (0-0.4); EOSINOPHILS % (AUTO) 2 % (1-7); LYMPHOCYTES # (AUTO) 2.08 x10^3/uL (1-3.4); LYMPHOCYTES % (AUTO) 17 % (22-44); MD SCAN; MONOCYTES # (AUTO) 1.11 x10^3/uL (0.2-0.8); MONOCYTES % (AUTO) 9 % (2-9); NEUTROPHILS # (AUTO) 8.87 x10^3/uL (1.8-6.8); NEUTROPHILS % (AUTO) 72 % (42-75)
[2018-02-02 08:16] VITALS: BP 128/86
[2018-02-02] MEDS: ENOXAPARIN 40 MG/0.4 ML SQ SCH (09:03)
[2018-02-02] MEDS: FLUOXETINE HCL 20 MG CAPSULE PO SCH (09:03)
[2018-02-02] MEDS: FAMOTIDINE 20 MG TABLET PO SCH ×2 (09:03→21:14)
[2018-02-02] MEDS: METOCLOPRAMIDE 10MG TABLET PO SCH ×3 (09:03→16:37)
[2018-02-02] MEDS: FERROUS SULFATE 325 MG TABLET PO SCH ×3 (09:03→16:37)
[2018-02-02] MEDS: FLUCONAZOLE 400 MG/200 ML 200 ML IV SCH (11:31)
[2018-02-02 14:21] VITALS: BP 114/77
[2018-02-02 19:48] VITALS: BP 136/91
[2018-02-02] MEDS: DAPTOMYCIN 420 MG in SODIUM CHLORIDE 0.9% 100 ML IV SCH (21:22)
[2018-02-02] MEDS: LORazepam 0.5MG TABLET PO PRN (22:04)
[2018-02-03 01:16] VITALS: BP 129/83
[2018-02-03] MEDS: MEROPENEM 1 GM in SODIUM CHLORIDE 0.9% 100 ML IV SCH ×3 (01:53→17:51)
[2018-02-03] MEDS: IBUPROFEN 600 MG TABLET PO PRN ×2 (03:19→17:51)
[2018-02-03 06:47] VITALS: BP 136/88
[2018-02-03] MEDS: ENOXAPARIN 40 MG/0.4 ML SQ SCH (08:00)
[2018-02-03] MEDS: FERROUS SULFATE 325 MG TABLET PO SCH ×3 (08:01→17:51)
[2018-02-03] MEDS: FAMOTIDINE 20 MG TABLET PO SCH ×2 (08:01→19:56)
[2018-02-03] MEDS: METOCLOPRAMIDE 10MG TABLET PO SCH ×3 (08:01→17:52)
[2018-02-03] MEDS: FLUOXETINE HCL 20 MG CAPSULE PO SCH (08:01)
[2018-02-03 10:12] LABS: MEAN CORPUSCULAR HEMOGLOBIN 29.2 pg (27.0-34.8); MEAN CORPUSCULAR HGB CONC 33.2 g/dL (32.4-35.8); MEAN PLATELET VOLUME 7.3 fL (7.4-10.4); PLATELET COUNT 867 x10^3/uL (130-400); RED BLOOD COUNT 2.69 x10^6/uL (3.82-5.3); RED CELL DISTRIBUTION WIDTH 14.4 % (9.6-15.2)
[2018-02-03 10:38] LABS: BASOPHILS # (AUTO) 0.09 x10^3/uL (0-0.1); BASOPHILS % (AUTO) 1 % (0-1); EOSINOPHILS # (AUTO) 0.12 x10^3/uL (0-0.4); EOSINOPHILS % (AUTO) 1 % (1-7); LYMPHOCYTES # (AUTO) 1.69 x10^3/uL (1-3.4); LYMPHOCYTES % (AUTO) 13 % (22-44); MD SCAN; MONOCYTES # (AUTO) 0.77 x10^3/uL (0.2-0.8); MONOCYTES % (AUTO) 6 % (2-9); NEUTROPHILS # (AUTO) 9.99 x10^3/uL (1.8-6.8); NEUTROPHILS % (AUTO) 79 % (42-75)
[2018-02-03] MEDS: OXYcodone/APAP 7.5/325MG TABLET PO PRN ×2 (11:33→22:10)
[2018-02-03] MEDS: FLUCONAZOLE 400 MG/200 ML 200 ML IV SCH (11:34)
[2018-02-03 13:00] VITALS: BP 123/84
[2018-02-03 19:19] VITALS: BP 148/72
[2018-02-03] MEDS: DAPTOMYCIN 420 MG in SODIUM CHLORIDE 0.9% 100 ML IV SCH (21:24)
[2018-02-03] MEDS: LORazepam 0.5MG TABLET PO PRN (22:10)
[2018-02-04 01:06] VITALS: BP 125/82
[2018-02-04] MEDS: MEROPENEM 1 GM in SODIUM CHLORIDE 0.9% 100 ML IV SCH ×3 (02:33→17:53)
[2018-02-04 05:46] LABS: BASOPHILS # (AUTO) 0.06 x10^3/uL (0-0.1); BASOPHILS % (AUTO) 1 % (0-1); EOSINOPHILS # (AUTO) 0.16 x10^3/uL (0-0.4); EOSINOPHILS % (AUTO) 2 % (1-7); LYMPHOCYTES # (AUTO) 1.78 x10^3/uL (1-3.4); LYMPHOCYTES % (AUTO) 18 % (22-44); MD NO; MEAN CORPUSCULAR HGB CONC 33.8 g/dL (32.4-35.8); MEAN CORPUSCULAR VOLUME 88.8 fL (80-100); MEAN PLATELET VOLUME 7.1 fL (7.4-10.4); MONOCYTES # (AUTO) 0.97 x10^3/uL (0.2-0.8); MONOCYTES % (AUTO) 10 % (2-9); NEUTROPHILS # (AUTO) 7.01 x10^3/uL (1.8-6.8); NEUTROPHILS % (AUTO) 70 % (42-75); PLATELET COUNT 886 x10^3/uL (130-400); RED BLOOD COUNT 2.59 x10^6/uL (3.82-5.3); RED CELL DISTRIBUTION WIDTH 14.7 % (9.6-15.2)
[2018-02-04 07:21] VITALS: BP 147/96
[2018-02-04] MEDS: ENOXAPARIN 40 MG/0.4 ML SQ SCH (08:45)
[2018-02-04] MEDS: FLUOXETINE HCL 20 MG CAPSULE PO SCH (08:46)
[2018-02-04] MEDS: IBUPROFEN 600 MG TABLET PO PRN ×2 (08:46→17:52)
[2018-02-04] MEDS: FAMOTIDINE 20 MG TABLET PO SCH ×2 (08:46→21:34)
[2018-02-04] MEDS: FERROUS SULFATE 325 MG TABLET PO SCH ×3 (08:46→17:52)
[2018-02-04] MEDS: METOCLOPRAMIDE 10MG TABLET PO SCH ×3 (08:46→17:52)
[2018-02-04] MEDS: FLUCONAZOLE 400 MG/200 ML 200 ML IV SCH (12:01)
[2018-02-04] MEDS: OXYcodone/APAP 7.5/325MG TABLET PO PRN ×2 (12:10→22:37)
[2018-02-04 12:45] LABS: % IRON SATURATION 10 % (20-55); IRON LEVEL 17 mcg/dL (50-170); TOTAL IRON BINDING CAPACITY 165 mcg/dL (250-450)
[2018-02-04 14:45] VITALS: BP 135/91
[2018-02-04 18:35] VITALS: BP 134/87
[2018-02-04] MEDS: DAPTOMYCIN 420 MG in SODIUM CHLORIDE 0.9% 100 ML IV SCH (21:34)
[2018-02-04] MEDS: LORazepam 0.5MG TABLET PO PRN (22:37)
[2018-02-05] MEDS: MEROPENEM 1 GM in SODIUM CHLORIDE 0.9% 100 ML IV SCH (02:22)
[2018-02-05 02:43] VITALS: BP 132/88
[2018-02-05 06:02] LABS: BASOPHILS # (AUTO) 0.05 x10^3/uL (0-0.1); BASOPHILS % (AUTO) 1 % (0-1); EOSINOPHILS # (AUTO) 0.15 x10^3/uL (0-0.4); EOSINOPHILS % (AUTO) 2 % (1-7); LYMPHOCYTES # (AUTO) 2.71 x10^3/uL (1-3.4); LYMPHOCYTES % (AUTO) 27 % (22-44); MD NO; MEAN CORPUSCULAR HEMOGLOBIN 29.6 pg (27.0-34.8); MEAN CORPUSCULAR HGB CONC 33.9 g/dL (32.4-35.8); MEAN CORPUSCULAR VOLUME 87.2 fL (80-100); MONOCYTES # (AUTO) 0.73 x10^3/uL (0.2-0.8); MONOCYTES % (AUTO) 7 % (2-9); NEUTROPHILS # (AUTO) 6.59 x10^3/uL (1.8-6.8); NEUTROPHILS % (AUTO) 64 % (42-75); PLATELET COUNT 940 x10^3/uL (130-400); RED BLOOD COUNT 2.68 x10^6/uL (3.82-5.3); RED CELL DISTRIBUTION WIDTH 14.8 % (9.6-15.2)
[2018-02-05 06:09] LABS: HCT (SEDRATE) 23.4 % (34.6-47.8)
[2018-02-05 06:12] LABS: ALANINE AMINOTRANSFERASE 43 U/L (12-78); ALBUMIN 1.9 g/dL (3.4-5.0); ANION GAP 7 mmol/L (5-15); CALCIUM 8.3 mg/dL (8.5-10.1); CHLORIDE 108 mmol/L (98-107); CREATININE 0.46 mg/dL (0.55-1.02)
[2018-02-05 06:19] LABS: ALKALINE PHOSPHATASE 61 U/L (45-117); BILIRUBIN,TOTAL 0.2 mg/dL (0.2-1.0); CREATINE KINASE, TOTAL 40 U/L (26-192); TOTAL PROTEIN 6.4 g/dL (6.4-8.2)
[2018-02-05 06:59] VITALS: BP 155/99
[2018-02-05 07:37] LABS: SEDIMENTATION RATE > 120 mm/hr (0-20)
[2018-02-05] MEDS: METOCLOPRAMIDE 10MG TABLET PO SCH ×2 (09:10→12:35)
[2018-02-05] MEDS: FERROUS SULFATE 325 MG TABLET PO SCH ×2 (09:10→12:35)
[2018-02-05] MEDS: IBUPROFEN 600 MG TABLET PO PRN (09:10)
[2018-02-05] MEDS: FAMOTIDINE 20 MG TABLET PO SCH (09:10)
[2018-02-05] MEDS: ENOXAPARIN 40 MG/0.4 ML SQ SCH (09:11)
[2018-02-05] MEDS: FLUOXETINE HCL 20 MG CAPSULE PO SCH (09:11)
[2018-02-05] MEDS ORDERED: AMOXICILLIN/CLAV 500-125MG TABLET PO SCH (09:30)
[2018-02-05] MEDS ORDERED: FLUCONAZOLE 200 MG TABLET PO SCH (09:30)
[2018-02-05] MEDS ORDERED: CEFDINIR 300 MG CAPSULE PO SCH (09:30)
[2018-02-05 13:01] VITALS: BP 153/96
[2018-02-05] MEDS ORDERED: METO10TA82 PO (13:10)
[2018-02-05] MEDS ORDERED: FERR325T23 PO (13:11)
[2018-02-05] MEDS ORDERED: IBUP-1222 PO (13:12)
[2018-02-05] MEDS ORDERED: OXYC-302 PO (13:12)
[2018-02-05] MEDS ORDERED: FAMO-79 PO (13:13)
[2018-02-05] MEDS ORDERED: CEFD300C37 PO ×2 (15:05→15:14)
[2018-02-05] MEDS ORDERED: AMOX-367 PO (15:05)
[2018-02-05] MEDS ORDERED: FLUC200T PO (15:05)
[2018-02-05] MEDS ORDERED: FLUC200T4 PO (15:14)
[2018-02-05 15:30] VITALS: BP 136/88
[2018-02-05] MEDS: OXYcodone/APAP 7.5/325MG TABLET PO PRN (16:06)
== END 2018-02-05 16:10 | disposition home or self-care (01) | DRG 853 ==
LOC: ED 17:58 → 4NOR 18:00 → ED 18:49
PROVIDERS: ADMIT Hospitalist; ATTEND Hospitalist
PROC: 0W9G0ZZ Drainage of Peritoneal Cavity, Open Approach (ICD-10-PCS; 2018-01-24)
PROC: 0DBN0ZZ Excision of Sigmoid Colon, Open Approach (ICD-10-PCS; 2018-01-24)
PROC: 0D1N0Z4 Bypass Sigmoid Colon to Cutaneous, Open Approach (ICD-10-PCS; principal; 2018-01-24 17:00)
PROC: 02HV33Z Insertion of Infusion Device into Superior Vena Cava, Percutaneous Approach (ICD-10-PCS; 2018-01-25)
PROC: B5181ZA Fluoroscopy of Superior Vena Cava using Low Osmolar Contrast, Guidance (ICD-10-PCS; 2018-01-25)
PROC: B548ZZA Ultrasonography of Superior Vena Cava, Guidance (ICD-10-PCS; 2018-01-25)
DX: A41.9 Sepsis, unspecified organism (principal); E43 Unspecified severe protein-calorie malnutrition; K57.20 Diverticulitis of large intestine with perforation and abscess without bleeding; R17 Unspecified jaundice; L03.311 Cellulitis of abdominal wall; R73.9 Hyperglycemia, unspecified; Z87.11 Personal history of peptic ulcer disease; Z68.37 Body mass index [BMI] 37.0-37.9, adult; E66.01 Morbid (severe) obesity due to excess calories; F32.9 Major depressive disorder, single episode, unspecified; F41.9 Anxiety disorder, unspecified; G43.909 Migraine, unspecified, not intractable, without status migrainosus; G47.00 Insomnia, unspecified; I10 Essential (primary) hypertension; I34.0 Nonrheumatic mitral (valve) insufficiency; K58.9 Irritable bowel syndrome, unspecified; M79.7 Fibromyalgia; R53.82 Chronic fatigue, unspecified; Z79.899 Other long term (current) drug therapy; Z80.0 Family history of malignant neoplasm of digestive organs; Z80.7 Family history of other malignant neoplasms of lymphoid, hematopoietic and related tissues
CPT/HCPCS: 36415; 77001; 99285; J3475; S0028; 36569; 71045; 74176; 74177; 76937; 80048; 80053; 81001; 81003; 81025; 82040; 82550; 82962; 83036; 83540; 83550; 83605; 83690; 83735; 84100; 84134; 84478; 85025; 85651; 86140; 86803; 87040; 87324; 88307; 93306; 96374; 96375; 96376; J0171; J0744; J0878; J1170; J1450; J1650; J1815; J1885; J2185; J2405; J2543; J2550; J2704; J2710; J3010; J3370; J3480; J3490; Q9967; C1751; C1765; J0330; J0610; J0780; J1200; J2060; J2270; J2765; J3420; J7050; J7120; Q0163